=== PATIENT | female | born 1945 | race Caucasian/White ===

== ENCOUNTER 2017-09-09 21:02 | Inpatient (IN) | payer MEDICARE, BC ==
[~2017-09-09] VITALS: Ht 162.6 cm; Wt 93.0 kg
[2017-09-09 21:13] VITALS: BP 120/62; PULSE 73; RESP 18; TEMP 97.8; O2SAT 99
[2017-09-09] MEDS ORDERED: MORPHINE SULFATE 4 MG/ML INJ IM ONE (21:15)
--- NOTE | 2017-09-09 21:18 | PD ---
HPI Chief Complaint: fall Time Seen by Provider: 21:06 Travel History International Travel<30 days: No Contact w/Intl Traveler<30days: No History of Present Illness HPI 72-year-old female presents status post trip and fall on something on the floor she thinks wiring at a conference here in town. She states she felt something in her right shoulder and that is the main location of her pain. She states she also has little bit of pain to her right knee but she's not sure if that's her typical pain. She states she did not hit her head or black out. She denies other concurrent complaints. Quality pain is sharp. Severity is severe per patient. Pain is worse with movement. She denies other modifying factors. She denies taking blood thinner medications. PFSH Past Medical History Narrative Medical Diabetes, hypertension Past Surgical History Cholecystectomy: Yes Hysterectomy: Yes Social History Alcohol Use: No Tobacco Use: No Substance Use: No Allergies-Medications (Allergen,Severity, Reaction): Coded Allergies: No Known Allergies (Unverified , 09/09/17) Reported Meds & Prescriptions Reported Meds & Active Scripts Active Zofran Odt (Ondansetron Odt) 4 Mg Tab 4 Mg SL Q8HR PRN Percocet (Oxycodone-Acetaminophen) 5-325 mg Tab 1 Tab PO Q6H PRN Review of Systems Except as stated in HPI: all other systems reviewed are Neg Physical Exam Narrative General: 72 y/o patient in no apparent distress Skin: Warm and dry Eyes: Pupils equal NECK: no pain with palpation in midline and with range of motion Cardiovascular: Regular rate and rhythm Respiratory: Normal respiratory effort noted, clear to auscultation bilaterally Abdomen: soft, nontender, nondistended Back: No step-offs, entire midline spine nontender with palpation Extremities: Pain with palpation of right shoulder and right knee, no lacerations over, neurovascularly intact, no pain with palpation other joints Neuro: awake, alert, sensation and motor grossly intact Data Data Last Documented VS Vital Signs Date Time Temp Pulse Resp B/P (MAP) Pulse Ox O2 Delivery O2 Flow Rate FiO2 09/10/17 02:59 76 18 133/62 (85) 97 Room Air 09/09/17 21:13 97.8 Orders Orders Hip, Uni(Ap&Lat) W Ap Pelvis (09/09/17 21:13) Knee, Complete (4vws) (09/09/17 21:13) Morphine Inj (Morphine Inj) (09/09/17 21:15) Shoulder, Limited(2vws) (09/09/17 21:13) Splint Or Brace Apply/Monitor (09/09/17 22:13) Sling Cradle Arm (09/09/17 ) Oxycodone-Acetamin 5-325 Mg (Percocet (09/09/17 23:45) Ondansetron Odt (Zofran Odt) (09/09/17 23:45) Complete Blood Count With Diff (09/10/17 03:16) Basic Metabolic Panel (Bmp) (09/10/17 03:16) Iv Access Insert/Monitor (09/10/17 03:16) Ecg Monitoring (09/10/17 03:16) Oximetry (09/10/17 03:16) Place In Observation (09/10/17 ) Vital Signs (Adult) Q4H (09/10/17 03:30) Activity Oob With Assistance (09/10/17 03:30) Diet 1800 Ada Cons Carb (09/10/17 Breakfast) Sodium Chloride 0.9% Flush (Ns Flush) (09/10/17 03:30) Sodium Chloride 0.9% Flush (Ns Flush) (09/10/17 09:00) Ondansetron Inj (Zofran Inj) (09/10/17 03:30) Comprehensive Metabolic Panel (09/11/17 06:00) Complete Blood Count With Diff (09/11/17 06:00) Pt Request For Service (09/10/17 03:30) Case Management Consult (09/10/17 03:30) Scd Bilateral/Knee High MARY.BID (09/10/17 03:30) Rj Bilateral/Knee High MARY.QSHIFT (09/10/17 03:34) Acetaminophen (Tylenol) (09/10/17 03:30) Acetamin-Hydrocod 325-5 Mg ([place] 5-325 (09/10/17 03:30) Morphine Inj (Morphine Inj) (09/10/17 03:30) Docusate Sodium-Senna (Vicky-Colace) (09/10/17 09:00) Magnesium Hydroxide Liq (Milk Of Magnesi (09/10/17 03:30) Sennosides (Senokot) (09/10/17 03:30) Bisacodyl Supp (Dulcolax Supp) (09/10/17 03:30) Lactulose Liq (Lactulose Liq) (09/10/17 03:30) Bedside Glucose MARY.CSUGAR (09/10/17 03:30) Blood Glucose Goal (Criteria) (09/10/17 03:30) Hypoglycemia 70 Mg/Dl Or < (09/10/17 03:30) Notify Dr: Other (09/10/17 03:30) Dextrose 50% In Nasrin (Vial) Inj (D50w (Vi (09/10/17 03:30) Glucagon Inj (Glucagon Inj) (09/10/17 03:30) Insulin Aspart Supplemtl Scale (Novolog (09/10/17 08:00) Admit Order (Ed Use Only) (09/10/17 03:36) MDM Medical Decision Making Medical Screen Exam Complete: Yes Emergency Medical Condition: Yes Medical Record Reviewed: Yes (past history confirmed) Interpretation(s) Last 24 hours Impressions Shoulder X-Ray 09/09/172112 Signed Impressions: Service Date/Time: Saturday, September 09, 2017 21:32 - CONCLUSION: Proximal humeral fracture. Simón Ortega MD Knee X-Ray 09/09/172112 Signed Impressions: Service Date/Time: Saturday, September 09, 2017 21:43 - CONCLUSION: No acute disease. Simón Ortega MD Hip and Pelvis X-Ray 09/09/172112 Signed Impressions: Service Date/Time: Saturday, September 09, 2017 21:40 - CONCLUSION: No acute disease. Simón Ortega MD Differential Diagnosis Fracture, strain, sprain Narrative Course Will check x-rays and dose with morphine and reevaluate X-ray show proximal humerus fracture on the right. Sling will be placed. Advised close orthopedic follow-up on Tuesday in [place] where they live. At discharge tried to get patient up to ambulate and she states she's having too much pain in her right knee and daughter does not feel comfortable taking her home. Even with 3 people in the room trying to help her ambulate patient did not fill comfortable walking given pain in her knee, We'll admit to medicine for pain control and further care. Physician Communication Physician Communication dr farmer agrees to observation Diagnosis Primary Impression: Right humeral fracture Qualified Codes: S42.201A - Unspecified fracture of upper end of right humerus , initial encounter for closed fracture Additional Impression: Right knee pain Qualified Codes: M25.561 - Pain in right knee Admitting Information Admitting Physician Requests: Observation Scripts Ondansetron Odt (Zofran Odt) 4 Mg Tab 4 MG SL Q8HR Y for Nausea/Vomiting, #10 TAB 0 Refills Prov: Hayley Mtz MD 09/09/17 Oxycodone-Acetaminophen (Percocet) 5-325 mg Tab 1 TAB PO Q6H Y for PAIN, #15 TAB 0 Refills Prov: Hayley Mtz MD 09/09/17 Hayley Mtz MD Sep 09, 2017 21:18
--- NOTE | 2017-09-09 22:14 | RADRPT ---
EXAM DATE/TIME: 09/09/2017 21:32 [facility] COMPARISON: No previous studies available for comparison. INDICATIONS : Fell tonight. MEDICAL HISTORY : None. SURGICAL HISTORY : None. ENCOUNTER: Initial ACUITY: 1 day PAIN SCORE: 10/10 LOCATION: Right shoulder FINDINGS: There is fracture of the proximal humerus at the surgical neck. The humeral shaft is displaced anteri priscilla. The glenohumeral joint is aligned. CONCLUSION: Proximal humeral fracture. Simón Ortega MD on September 09, 2017 at 22:10 Board Certified Radiologist. This report was verified electronically.
--- NOTE | 2017-09-09 22:15 | RADRPT ---
EXAM DATE/TIME: 09/09/2017 21:40 [facility] COMPARISON: No previous studies available for comparison. INDICATIONS : Fell tonight. MEDICAL HISTORY : None. SURGICAL HISTORY : None. ENCOUNTER: Initial ACUITY: 1 day PAIN SCORE: 0/10 LOCATION: Right hip FINDINGS: Examination of the right hip was performed with AP Pelvis. The primary and secondary trabecular robbin pa of the femoral neck is intact. The hip joint is of normal width without significant sclerosis or bony hypertrophy. The acetabulum is grossly intact. There is degenerative change in the lumbar spin e. CONCLUSION: No acute disease. Simón Ortega MD on September 09, 2017 at 22:13 Board Certified Radiologist. This report was verified electronically.
--- NOTE | 2017-09-09 22:15 | RADRPT ---
EXAM DATE/TIME: 09/09/2017 21:43 [facility] COMPARISON: No previous studies available for comparison. INDICATIONS : Fell tonight. MEDICAL HISTORY : None. SURGICAL HISTORY : None. ENCOUNTER: Initial ACUITY: 1 day PAIN SCORE: 0/10 LOCATION: Right KNEE FINDINGS: Four view examination of the right knee demonstrates no evidence of fracture or dislocation. Bony mi neralization is normal. The articular surfaces are intact. The suprapatellar soft tissues have a no rmal configuration. CONCLUSION: No acute disease. Simón Ortega MD on September 09, 2017 at 22:13 Board Certified Radiologist. This report was verified electronically.
[2017-09-09] MEDS ORDERED: PERC5TAB12 PO (23:30)
[2017-09-09] MEDS ORDERED: ZOFR4TAB3 SL (23:43)
[2017-09-09] MEDS ORDERED: oxyCODONE/ACETAMINOPHEN 5 MG/325 MG TAB PO ONE (23:45)
[2017-09-09] MEDS ORDERED: ONDANSETRON ODT 4 MG TAB PO ONE (23:45)
[2017-09-10] VITALS (8 sets, daily range): BP systolic 94–166; BP diastolic 55–73; PULSE 72–89; RESP 16–22; TEMP 98.3–99.9; O2SAT 91–98
[2017-09-10] MEDS ORDERED: BISACODYL 10 MG SUPP RECTAL PRN (03:30)
[2017-09-10] MEDS ORDERED: GLUCAGON 1 MG/ML VIAL OTHER PRN (03:30)
[2017-09-10] MEDS ORDERED: ACETAMINOPHEN 325 MG TAB PO PRN (03:30)
[2017-09-10] MEDS ORDERED: SODIUM CHLORIDE 0.9% FLUSH 10 ML FLUSH IV FLUSH PRN (03:30)
[2017-09-10] MEDS ORDERED: ACETAMINOPHEN/HYDROcodone 325 MG/5 MG TAB PO PRN (03:30)
[2017-09-10] MEDS ORDERED: MAGNESIUM HYDROXIDE SUSP 30 ML CUP PO PRN (03:30)
[2017-09-10] MEDS ORDERED: DEXTROSE 50% IN WATER 50 ML VIAL(D50) IV PUSH PRN (03:30)
[2017-09-10] MEDS ORDERED: SENNOSIDES 8.6 MG TAB PO PRN (03:30)
[2017-09-10] MEDS ORDERED: LACTULOSE SYRUP 20 GM/30 ML CUP PO PRN (03:30)
[2017-09-10 04:04] LABS: AUTOMATED NEUTROPHIL # 12.4 TH/MM3 (1.8-7.7); BASOPHIL # 0.1 TH/MM3 (0-0.2); BASOPHIL % 0.5 % (0.0-2.0); EOSINOPHIL % 0.1 % (0.0-4.0); HEMATOCRIT 38.9 % (35.0-46.0); HEMO FLAGS DIFF FINAL; LYMPHOCYTE # 1.1 TH/MM3 (1.0-4.8); MEAN CELL VOLUME 88.3 FL (80.0-100.0); MEAN CORPUSCULAR HEMOGLOBIN 28.8 PG (27.0-34.0); MEAN CORPUSCULAR HGB CONC 32.7 % (32.0-36.0); MONO % 4.9 % (0.0-8.0); NEUT % 86.5 % (16.0-70.0); PLATELET COUNT 215 TH/MM3 (150-450); RED CELL DISTRIBUTION WIDTH 13.7 % (11.6-17.2); WHITE BLOOD COUNT 14.3 TH/MM3 (4.0-11.0)
--- NOTE | 2017-09-10 04:29 | HHI.HP ---
HPI Service [facility] Primary Care Physician Unknown Admission Diagnosis right proximal humerus fracture, right knee pain Diagnoses: (1) Fall Diagnosis: Principal (2) Proximal humerus fracture Diagnosis: Principal (3) Knee pain, right Diagnosis: Principal (4) HTN (hypertension) Diagnosis: Principal (5) DM (diabetes mellitus) Diagnosis: Principal Travel History International Travel<30 Days: No Contact w/Intl Traveler <30 Da: No Traveled to Known Affected Are: No History of Present Illness This is a 72-year-old female with a PMH of HTN and DM who is brought to the ER by Daughter secondary to complaints of right shoulder and right knee pain after a fall. Both patient and daughter are visiting from [facility] she had mechanical trip and fall while at Hotel. Denies dizziness/ lightheadedness, LOC or head trauma. On arrival, BP 120/62, HR 73, O2 sat 99% on RA, Afebrile. WBC 14.3. Chemistry pending. Hip X-ray negative. Knee X- ray with no acute findings. Shoulder X-ray with proximal humerus fracture, s/p sling in ER. Pt was to be d/c'd home w/ outpatient Ortho follow-up, however c/ o severe, persistent shoulder/knee pain. Pt attempted to ambulate while in ER, however had severe pain unable to ambulate. Daughter not comfortable taking patient home in this condition. Review of Systems Except as stated in HPI: all other systems reviewed are Neg ROS: 14 point review of systems otherwise negative. Past Family Social History Past Medical History PMH: HTN and DM Past Surgical History PAST SURGICAL HISTORY: Cholecystectomy, Hysterectomy Allergies: Coded Allergies: No Known Allergies (Unverified , 09/09/17) Family History PAST FAMILY HISTORY: Reviewed. No h/o DM or CAD Social History PAST SOCIAL HISTORY: Negative for alcohol, tobacco or drugs. Physical Exam Vital Signs Vital Signs Date Time Temp Pulse Resp B/P (MAP) Pulse Ox O2 Delivery O2 Flow Rate FiO2 09/10/17 03:52 20 09/10/17 03:51 20 09/10/17 02:59 76 18 133/62 (85) 97 Room Air 10/14/17 02:40 72 18 94/55 (68) 98 Room Air 09/09/17 21:18 74 98 09/09/17 21:13 97.8 73 18 120/62 (81) 99 Physical Exam PE: GENERAL: Elderly white female in no acute distress. Daughter at bedside. HEENT: PERRLA, EOMI. No scleral icterus or conjunctival pallor. No lid lag or facial droop. CARDIOVASCULAR: Regular rate and rhythm. No obvious murmurs to auscultation. No chest tenderness to palpation. RESPIRATORY: No obvious rhonchi or wheezing. Clear to auscultation. Breath sounds equal bilaterally. GASTROINTESTINAL: Abdomen soft, non-tender, nondistended. BS normal. MUSCULOSKELETAL: Extremities without clubbing, cyanosis, or edema. No obvious deformities. RUE in sling. Decreased ROM of right knee due to pain, no obvious deformity. NEUROLOGICAL: Awake, alert and oriented x4. No focal neurologic deficits. Moving both upper and lower extremities spontaneously. Laboratory Laboratory Tests Test 09/10/17 03:45 White Blood Count 14.3 Red Blood Count 4.40 Hemoglobin 12.7 Hematocrit 38.9 Mean Corpuscular Volume 88.3 Mean Corpuscular Hemoglobin 28.8 Mean Corpuscular Hemoglobin Concent 32.7 Red Cell Distribution Width 13.7 Platelet Count 215 Mean Platelet Volume 10.4 Neutrophils (%) (Auto) 86.5 Lymphocytes (%) (Auto) 8.0 Monocytes (%) (Auto) 4.9 Eosinophils (%) (Auto) 0.1 Basophils (%) (Auto) 0.5 Neutrophils # (Auto) 12.4 Lymphocytes # (Auto) 1.1 Monocytes # (Auto) 0.7 Eosinophils # (Auto) 0.0 Basophils # (Auto) 0.1 CBC Comment DIFF FINAL Differential Comment Result Diagram: 09/10/17 0345 Caprini VTE Risk Assessment Caprini VTE Risk Assessment: Mod/High Risk (score >= 2) Caprini Risk Assessment Model Point Value = 1 Point Value = 2 Point Value = 3 Point Value = 5 Age 41-60 Minor surgery BMI > 25 kg/m2 Swollen legs Varicose veins or History of unexplained or recurrent spontaneous Oral contraceptives or hormone replacement Sepsis (< 1 month) Serious lung disease, including pneumonia (< 1 month) Abnormal pulmonary function Acute myocardial infarction Congestive heart failure (< 1 month) History of inflammatory bowel disease Medical patient at bed rest Age 61-74 Arthroscopic surgery Major open surgery (> 45 min) Laparoscopic surgery (> 45 min) Malignancy Confined to bed (> 72 hours) Immobilizing plaster cast Central venous access Age >= 75 History of VTE Family history of VTE Factor V Leiden Prothrombin [id number] Lupus anticoagulant Anticardiolipin antibodies Elevated serum homocysteine Heparin-induced thrombocytopenia Other congenital or acquired thrombophilia Stroke (< 1 month) Elective arthroplasty Hip, pelvis, or leg fracture Acute spinal cord injury (< 1 month) Prophylaxis Regimen Total Risk Factor Score Risk Level Prophylaxis Regimen 0-1 Low Early ambulation 2 Moderate Order ONE of the following: *Sequential Compression Device (SCD) *Heparin 5000 units SQ BID 3-4 Higher Order ONE of the following medications: *Heparin 5000 units SQ TID *Enoxaparin/Lovenox 40 mg SQ daily (WT < 150 kg, CrCl > 30 mL/min) *Enoxaparin/Lovenox 30 mg SQ daily (WT < 150 kg, CrCl > 10-29 mL/min) *Enoxaparin/Lovenox 30 mg SQ BID (WT < 150 kg, CrCl > 30 mL/min) AND/OR *Sequential Compression Device (SCD) 5 or more Highest Order ONE of the following medications: *Heparin 5000 units SQ TID (Preferred with Epidurals) *Enoxaparin/Lovenox 40 mg SQ daily (WT < 150 kg, CrCl > 30 mL/min) *Enoxaparin/Lovenox 30 mg SQ daily (WT < 150 kg, CrCl > 10-29 mL/min) *Enoxaparin/Lovenox 30 mg SQ BID (WT < 150 kg, CrCl > 30 mL/min) AND *Sequential Compression Device (SCD) Assessment and Plan Problem List: (1) Fall ICD Code: W19.XXXA - Unspecified fall, initial encounter (2) Proximal humerus fracture ICD Code: S42.209A - Unspecified fracture of upper end of unspecified humerus, initial encounter for closed fracture (3) Knee pain, right ICD Code: M25.561 - Pain in right knee (4) HTN (hypertension) ICD Code: I10 - Essential (primary) hypertension (5) DM (diabetes mellitus) ICD Code: E11.9 - Type 2 diabetes mellitus without complications Assessment and Plan A/P: 1. Fall: s/p mechanical trip and fall, no dizziness, no LOC or head trauma reported. Hip X-ray w/ no acute findings, images reviewed by me. 2. Prox Humerus Fx: Right. Shoulder X-ray w/ right proximal humerus fracture , images reviewed by me. Secondary to fall, likely non-operable, s/p sling in ER. Pain control. Ortho consult for further eval. 3. Knee Pain: Right. Secondary to fall, Knee X-ray w/ no acute findings, images reviewed by me. Pt unable to bare weight. PT for eval/tx, Ortho eval for further recommendations. 4. HTN: H/o HTN, episode of transient hypotension w/ BP 94/55, HR 72 while standing, BP now normalized 133/62, HR 76, likely vasovagal event. IVF for hydration, monitor BP. 5. DM: Sliding scale w/ Accu-Cheks. 6. DVT Prophylaxis: Heparin sq 7. Social work for d/c planning as needed. 8. Case discussed w/ ER physician at length Julee Hyde MD Sep 10, 2017 04:29
[2017-09-10 04:43] LABS: BICARBONATE 27.4 MEQ/L (21.0-32.0); POTASSIUM 3.7 MEQ/L (3.5-5.1)
[2017-09-10] MEDS: MORPHINE SULFATE 4 MG/ML INJ IV PUSH PRN ×4 (04:50→20:33)
[2017-09-10] MEDS: INSULIN ASPART SUPPLEMENTAL SCALE SQ SCH ×4 (08:00→20:27)
[2017-09-10] MEDS: DOCUSATE SODIUM 50 MG/SENNA 8.6 MG TAB PO SCH ×2 (08:09→20:27)
[2017-09-10] MEDS: SODIUM CHLORIDE 0.9% FLUSH 10 ML FLUSH IV FLUSH SCH ×2 (08:10→20:27)
[2017-09-10] MEDS: HEPARIN SODIUM - SQ 10,000 UNITS/ML VIAL SQ SCH ×2 (08:10→20:27)
[2017-09-10] MEDS: oxyCODONE/ACETAMINOPHEN 5 MG/325 MG TAB PO PRN ×3 (08:11→21:12)
[2017-09-10] MEDS: ONDANSETRON HCL 4 MG/2 ML VIAL IVP PRN ×2 (08:22→21:18)
[2017-09-10] MEDS ORDERED: ACTO30TA10 PO (12:29)
[2017-09-10] MEDS ORDERED: OMEP20TA PO (12:30)
[2017-09-10] MEDS ORDERED: HYDR25TA5 PO (12:31)
[2017-09-10] MEDS ORDERED: AMLO5TAB2 PO (12:31)
[2017-09-10] MEDS ORDERED: ROSU5 PO (12:32)
[2017-09-10] MEDS ORDERED: LISI-515 PO (12:32)
--- NOTE | 2017-09-10 12:55 | HHI.PR ---
Subjective Remarks Follow-up for fall and shoulder and knee pain. The patient is seen with her daughter at bedside. The patient had a trip and fall landing on her right side yesterday. Since then she's been having pretty significant pain in her right shoulder and right knee. The patient states that as long she doesn't try to move she does not have any pain. She complains of severe pain 9/10 in severity whenever she tries to bear weight. She was able to do some activities in bed with therapy today with relatively little discomfort. She denies any other injury. Due to the level of pain and the patient's knee, the patient and daughter are concerned that further workup may be needed for this despite reassurance. The patient does report that the Percocet and morphine she is getting is helping to alleviate the discomfort. The patient does state that she 's been having some chest discomfort and shortness of breath whenever she tries to exert herself since this injury yesterday. She denies any prior history of heart disease, but does take medicine for diabetes and high blood pressure. Patient states that when she tried to ambulate last night she felt like she was going to pass out, and thinks this was due to pain. Objective Vitals Vital Signs Date Time Temp Pulse Resp B/P (MAP) Pulse Ox O2 Delivery O2 Flow Rate FiO2 09/10/17 12:11 98.5 84 20 166/73 (104) 94 09/10/17 08:23 98.6 83 16 124/60 (81) 92 09/10/17 05:36 98.3 89 19 121/57 (78) 93 09/10/17 05:02 09/10/17 03:52 20 09/10/17 03:51 20 09/10/17 02:59 76 18 133/62 (85) 97 Room Air 09/10/17 02:40 72 18 94/55 (68) 98 Room Air 09/09/17 21:18 74 98 09/09/17 21:13 97.8 73 18 120/62 (81) 99 Result Diagram: 09/10/17 0345 09/10/17 0345 Imaging Last Impressions Shoulder X-Ray 09/09/172112 Signed Impressions: Service Date/Time: Saturday, September 09, 2017 21:32 - CONCLUSION: Proximal humeral fracture. Simón Ortega MD Knee X-Ray 09/09/172112 Signed Impressions: Service Date/Time: Saturday, September 09, 2017 21:43 - CONCLUSION: No acute disease. Simón Ortega MD Hip and Pelvis X-Ray 09/09/172112 Signed Impressions: Service Date/Time: Saturday, September 09, 2017 21:40 - CONCLUSION: No acute disease. Simón Ortega MD Objective Remarks GENERAL: Well-developed well-nourished obese. In no acute distress. SKIN: Warm and dry. No lesions noted. HEENT: Normocephalic. Pupils equal and round. Mucous membranes pink and moist. CARDIOVASCULAR: Regular rate and rhythm. No murmur appreciated. RESPIRATORY: No accessory muscle use. Clear to auscultation. Breath sounds equal bilaterally. GASTROINTESTINAL: Abdomen soft, non-tender, nondistended. Bowel sounds x4. MUSCULOSKELETAL: Right shoulder in a sling. Right knee with some swelling and maybe small joint effusion, no bruising or ecchymosis, some discomfort and decreased ROM. No edema. NEUROLOGICAL: Awake and alert. Motor and sensory grossly intact in the right upper and right lower extremities. Normal speech. PSYCHIATRIC: Appropriate mood and affect; insight and judgment normal. A/P Problem List: (1) Fall ICD Code: W19.XXXA - Unspecified fall, initial encounter Status: Acute (2) Proximal humerus fracture ICD Code: S42.209A - Unspecified fracture of upper end of unspecified humerus, initial encounter for closed fracture Status: Acute (3) Knee pain, right ICD Code: M25.561 - Pain in right knee Status: Acute (4) HTN (hypertension) ICD Code: I10 - Essential (primary) hypertension Status: Chronic (5) DM (diabetes mellitus) ICD Code: E11.9 - Type 2 diabetes mellitus without complications Status: Chronic Assessment and Plan 72-year-old female with a PMH of HTN and DM who presented after a fall with right shoulder and right knee pain Right proximal humerus fracture s/p fall: Shoulder X-ray personally reviewed with w/ displaced right proximal humerus fracture. Orthopedics consulted, appreciate input. Continue sling. Continue pain control. Acute right knee pain s/p fall: Knee, hip, pelvis X-rays w/ no acute findings. Pt unable to bear weight or ambulate. PT/OT. Orthopedic consulted as above. Continue pain control with Percocet and IV morphine as needed. HTN: Chronic with transient hypotension w/ BP 94/55, HR 72 while standing in the ED. BP stable while laying, will continue monitor orthostatic vitals when ambulatory. IVF for hydration, monitor BP. Reconcile home medications. DM: Reconcile home medications, discussed with RN. Sliding scale w/ Accu- Cheks. Chest pain and shortness of breath: Intermittent and worse with activity, however none currently. Check serial EKGs and troponins and treat accordingly. TRUDY: Continue home CPAP. DVT Prophylaxis: Heparin sq Discharge Planning Follow-up orthopedics recommendations. Problem Qualifiers (1) Fall: Qualified Codes: W19.XXXA - Unspecified fall, initial encounter (2) Proximal humerus fracture: Qualified Codes: S42.291A - Other displaced fracture of upper end of right humerus, initial encounter for closed fracture (3) Knee pain, right: Qualified Codes: M25.561 - Pain in right knee (4) HTN (hypertension): Qualified Codes: I10 - Essential (primary) hypertension Alexys Palmer Sep 10, 2017 12:55
[2017-09-10 14:02] LABS: CREATINE KINASE 85 U/L (26-192)
--- NOTE | 2017-09-10 14:32 | EKG ---
Date Performed: 09/10/2017 Time Performed: 12:24:24 PTAGE: 72 years EKG: Sinus rhythm INCOMPLETE RIGHT BUNDLE BRANCH BLOCK BORDERLINE ECG NO PREVIOUS TRACING DOCTOR: Ashutosh Pfeiffer Interpretating Date/Time 09/10/2017 14:31:59
--- NOTE | 2017-09-10 16:10 | PD.CONS ---
cc: Chon Gutierrez Jr., MD HPI Service Orthopedic Surgeons Consult Requested By Primary Care Physician Unknown Admission Diagnosis right proximal humerus fracture, right knee pain Diagnoses: (1) Fall (2) Proximal humerus fracture (3) Knee pain, right (4) HTN (hypertension) (5) DM (diabetes mellitus) Chief Complaint: right shoulder pain right knee pain History of Present Illness 72-year-old female presents status post trip and fall c/o right shoulder and right knee pain. She has a PMH of HTN and DM who is brought to the ER by Daughter. Both are visiting from [facility] she had mechanical trip and fall while at Hotel. Denies dizziness/lightheadedness, LOC or head trauma. Pt was to be d/c'd home w/ outpatient Ortho follow-up, however c/o severe, persistent shoulder/knee pain. Pt attempted to ambulate while in ER, however had severe pain unable to ambulate. Daughter not comfortable taking patient home in this condition. During This consultation, she complains of RIGHT shoulder pain, exacerbated by range of motion, relieved at rest and use of the sling, and not associated with paresthesia or numbness to the RIGHT upper extremity, pain is nonradiating is 5 / 10. Her RIGHT knee pain is 6/10, exacerbated by range of motion beyond 45, not associated with paresthesia and numbness to the RIGHT lower extremity. The pain in either extremity is non-radiating ROS - General Review of Systems Except as stated in HPI: all other systems reviewed are Neg ROS: 14 point review of systems otherwise negative. PFSH Past Family Social History Past Medical History PMH: HTN and DM Past Surgical History PAST SURGICAL HISTORY: Cholecystectomy, Hysterectomy Allergies: Coded Allergies: No Known Allergies (Unverified , 09/09/17) Family History PAST FAMILY HISTORY: Reviewed. No h/o DM or CAD Social History PAST SOCIAL HISTORY: Negative for alcohol, tobacco or drugs. Allergies-Medications Allergies-Medications (Allergen,Severity, Reaction): Coded Allergies: No Known Allergies (Unverified , 09/09/17) Reported Meds & Prescriptions Reported Meds & Active Scripts Active Zofran Odt (Ondansetron Odt) 4 Mg Tab 4 Mg SL Q8HR PRN Percocet (Oxycodone-Acetaminophen) 5-325 mg Tab 1 Tab PO Q6H PRN Past Family Social History Past Medical History PMH: HTN and DM Past Surgical History PAST SURGICAL HISTORY: Cholecystectomy, Hysterectomy Allergies: Coded Allergies: No Known Allergies (Unverified , 09/09/17) Active Ordered Medications Current Medications Medications (Trade) Dose Ordered Sig/Juanita Route Start Time Stop Time Status Last Admin (NS Flush) 2 ml UNSCH PRN IV FLUSH 09/10/17 03:30 (NS Flush) 2 ml BID IV FLUSH 09/10/17 09:00 09/10/17 08:10 (Zofran Inj) 4 mg Q6H PRN IVP 09/10/17 03:30 09/10/17 08:22 (Tylenol) 650 mg Q6H PRN PO 09/10/17 03:30 (Morphine Inj) 2 mg Q3H PRN IV PUSH 09/10/17 03:30 09/10/17 10:49 (Vicky-Colace) 1 tab BID PO 09/10/17 09:00 09/10/17 08:09 (Milk Of Magnesia Liq) 30 ml Q12H PRN PO 09/10/17 03:30 (Senokot) 17.2 mg Q12H PRN PO 09/10/17 03:30 (Dulcolax Supp) 10 mg DAILY PRN RECTAL 09/10/17 03:30 (Lactulose Liq) 30 ml DAILY PRN PO 09/10/17 03:30 (D50w (Vial) Inj) 50 ml UNSCH PRN IV PUSH 09/10/17 03:30 (Glucagon Inj) 1 mg UNSCH PRN OTHER 09/10/17 03:30 (NovoLOG SUPPLEMENTAL SCALE) 1 ACHS SLIDING SCALE SQ 09/10/17 08:00 (Heparin Inj) 5,000 units Q12HR SQ 09/10/17 09:00 09/10/17 08:10 (Percocet 5-325 Mg) 1 tab Q4H PRN PO 09/10/17 07:30 09/10/17 12:56 Reported Meds & Active Scripts Active Zofran Odt (Ondansetron Odt) 4 Mg Tab 4 Mg SL Q8HR PRN Percocet (Oxycodone-Acetaminophen) 5-325 mg Tab 1 Tab PO Q6H PRN Reported Crestor (Rosuvastatin Calcium) 5 Mg Tab 5 Mg PO DAILY Lisinopril 20 Mg Tab 20 Mg PO DAILY Hydrochlorothiazide 25 Mg Tab 25 Mg PO DAILY Amlodipine (Amlodipine Besylate) 5 Mg Tab 5 Mg PO DAILY Omeprazole 20 Mg Tab 20 Mg PO BID Actos (Pioglitazone HCl) 30 Mg Tab 30 Mg PO DAILY Family History PAST FAMILY HISTORY: Reviewed. No h/o DM or CAD Social History PAST SOCIAL HISTORY: Negative for alcohol, tobacco or drugs. Physical Exam Vital Signs Vital Signs Date Time Temp Pulse Resp B/P (MAP) Pulse Ox O2 Delivery O2 Flow Rate FiO2 09/10/17 15:58 98.5 79 22 141/63 (89) 92 09/10/17 12:11 98.5 84 20 166/73 (104) 94 09/10/17 08:23 98.6 83 16 124/60 (81) 92 09/10/17 05:36 98.3 89 19 121/57 (78) 93 09/10/17 05:02 09/10/17 03:52 20 09/10/17 03:51 20 09/10/17 02:59 76 18 133/62 (85) 97 Room Air 09/10/17 02:40 72 18 94/55 (68) 98 Room Air 09/09/17 21:18 74 98 09/09/17 21:13 97.8 73 18 120/62 (81) 99 Physical Exam Alert awake and oriented -3. No acute distress. Neck: no tenderness to palpation along the posterior cervical region. No pain with any range of motion and neck. Abdomen: Soft, nontender, nondistended. Pulmonary: Normal respiratory effort. Right Upper extremity exam: sling in place, TTP, Swelling and ecchymosis about the shoulder. Axillary nerve sensation intact. Neurovascularly intact. Left upper extremity: No deformities. Motor exam is intact in the anterior interosseous, posterior interosseous, and ulnar nerves. Otherwise she is neurovascularly intact distally with good palpable pulses and capillary refill. RIGHT lower extremity: No deformities. small trace effusion, ROM 0-40, stable to varus/valgus stress. TTP lateral joint line.+ PT/DP pulses. Supple compartments. Negative Homans sign. Laboratory Laboratory Tests Test 09/10/17 03:45 09/10/17 13:17 White Blood Count 14.3 Red Blood Count 4.40 Hemoglobin 12.7 Hematocrit 38.9 Mean Corpuscular Volume 88.3 Mean Corpuscular Hemoglobin 28.8 Mean Corpuscular Hemoglobin Concent 32.7 Red Cell Distribution Width 13.7 Platelet Count 215 Mean Platelet Volume 10.4 Neutrophils (%) (Auto) 86.5 Lymphocytes (%) (Auto) 8.0 Monocytes (%) (Auto) 4.9 Eosinophils (%) (Auto) 0.1 Basophils (%) (Auto) 0.5 Neutrophils # (Auto) 12.4 Lymphocytes # (Auto) 1.1 Monocytes # (Auto) 0.7 Eosinophils # (Auto) 0.0 Basophils # (Auto) 0.1 CBC Comment DIFF FINAL Differential Comment Blood Urea Nitrogen 17 Creatinine 0.93 Random Glucose 138 Calcium Level 8.8 Sodium Level 139 Potassium Level 3.7 Chloride Level 103 Carbon Dioxide Level 27.4 Anion Gap 9 Estimat Glomerular Filtration Rate 59 Total Creatine Kinase 85 Troponin I LESS THAN 0.02 Result Diagram: 09/10/1734409/10/17344 Imaging Last 72 hours Impressions Shoulder X-Ray 09/09/172112 Signed Impressions: Service Date/Time: Saturday, September 09, 2017 21:32 - CONCLUSION: Proximal humeral fracture. Simón Ortega MD Knee X-Ray 09/09/172112 Signed Impressions: Service Date/Time: Saturday, September 09, 2017 21:43 - CONCLUSION: No acute disease. Simón Ortega MD Hip and Pelvis X-Ray 09/09/172112 Signed Impressions: Service Date/Time: Saturday, September 09, 2017 21:40 - CONCLUSION: No acute disease. Simón Ortega MD Assessment & Plan Assessment and Plan 1-right prox humerus fx 2-right knee pain. 72yo female from [facility] sustaining a fall at a hotel complaining of RIGHT shoulder pain and RIGHT knee pain. She is grossly neurovascularly intact. She has a past medical history of diabetes and hypertension. X-ray obtained in the emergency department revealed a RIGHT proximal humerus for fracture with fracture of the surgical neck and greater tuberosity. I would like to obtain a CAT scan of the RIGHT shoulder to further determine the extent of the injury to the articular surface. As far as her RIGHT knee, x-ray is negative for fractures. However on exam she is tender at the lateral joint line and has difficulty with with range of motion beyond 30-45. This likely represents a nondisplaced fracture versus exacerbation of underlying osteoarthritis. I will obtain an MRI of the RIGHT knee. Nonweightbearing RIGHT upper and RIGHT lower extremity. Nothing by mouth at midnight I will review results of the imaging studies and make recommendations tomorrow morning. All questions aswered. Mother and daughter at bedside. Chon Gutierrez Jr., MD Sep 10, 2017 16:10
--- NOTE | 2017-09-10 17:49 | RADRPT ---
EXAM DATE/TIME: 09/10/2017 16:57 [facility] COMPARISON: KNEE RIGHT COMPLETE (4VWS), September 09, 2017, 21:43. INDICATIONS : Internal derangement. MEDICAL HISTORY : Hypertension. Diabetes mellitus type 2. SURGICAL HISTORY : Hysterectomy. Cholecystectomy. Umbilical hernia repair. ORIF right elbow. ENCOUNTER: Initial ACUITY: 1 day PAIN SCORE: 0/10 LOCATION: Right Knee. TECHNIQUE: Multiplanar, multisequence MRI examination was performed without contrast. FINDINGS: CRUCIATE LIGAMENTS: ACL and PCL are intact. Increased signal intensity is identified at the tibial attachment of the ACL. MENISCI: Abnormal signal intensity extending to the inferior surface is identified in the posterior horn of th e medial meniscus. The lateral meniscus appears intact. COLLATERAL LIGAMENTS: MCL and LCL complexes are intact. BONE/CARTILAGE: Dear T2 hyperintensity with mild edema is identified transversely across the lateral tibial plateau. There is a component extending longitudinally into the metaphysis of the proximal tibia. There is no significant distraction. There is no depression of the articulating surfaces. MISCELLANEOUS: Small to moderate-sized joint effusion is noted. CONCLUSION: 1. Nondisplaced fracture of the lateral tibial plateau without depression. 2. Tear in the posterior horn of the medial meniscus. 3. Small to moderate effusion. 4. Mild ACL strain at its tibial attachment. Lester Lange MD on September 10, 2017 at 17:43 Board Certified Radiologist. This report was verified electronically.
--- NOTE | 2017-09-10 18:26 | RADRPT ---
EXAM DATE/TIME: 09/10/2017 17:24 [facility] COMPARISON: No previous studies available for comparison. INDICATIONS : Shoulder trauma RADIATION DOSE: 23.98 CTDIvol (mGy) MEDICAL HISTORY : Cerebrovascular disease. Cardiovascular disease Diabetes mellitus type 1. SURGICAL HISTORY : Cholecystectomy. Hysterectomy. ENCOUNTER: Initial ACUITY: 1 day PAIN SCALE: 8/10 LOCATION: Right shoulder TECHNIQUE: Volumetric scanning of the shoulder was performed. Using automated exposure control and adjustment o f the mA and/or kV according to patient size, radiation dose was kept as low as reasonably achievable to obtain optimal diagnostic quality images. DICOM format image data is available electronically f or review and comparison. FINDINGS: BONES: A comminuted fracture of the right humeral head and neck is noted. There is an angulated impacted fra cture through the surgical neck and an avulsion of the greater tuberosity. Humeral head is internally rotated but otherwise remains well seated within the glenoid fossa. Glenoid process and scapula are intact. JOINTS: Humeral head remains well-seated within the glenoid fossa. SOFT TISSUES: Articular periarticular inflammation is noted. Glenohumeral ligaments are not clearly defined. CONCLUSION: Comminuted fracture of the right humeral head and neck without dislocation. Lester Lange MD on September 10, 2017 at 18:20 Board Certified Radiologist. This report was verified electronically.
[2017-09-10 20:37] LABS: CREATINE KINASE 86 U/L (26-192)
[2017-09-11] VITALS (9 sets, daily range): BP systolic 123–153; BP diastolic 58–78; PULSE 75–94; RESP 12–18; TEMP 98.3–100.6; O2SAT 93–96
[2017-09-11] MEDS: oxyCODONE/ACETAMINOPHEN 5 MG/325 MG TAB PO PRN ×5 (01:37→23:52)
[2017-09-11] MEDS: MORPHINE SULFATE 4 MG/ML INJ IV PUSH PRN ×4 (03:58→16:46)
--- NOTE | 2017-09-11 07:42 | EKG ---
Date Performed: 09/10/2017 Time Performed: 18:07:18 PTAGE: 72 years EKG: Sinus rhythm WITH OCCASIONAL ECTOPIC PREMATURE COMPLEXES INCOMPLETE RIGHT BUNDLE BRANCH BLOCK BORDERLINE ECG Comp ared to prior electrocardiogram, Premature atrial contraction are now present PREVIOUS TRACING : 09/10/2017 12.24 DOCTOR: Ashutosh Pfeiffer Interpretating Date/Time 09/11/2017 07:41:45
[2017-09-11] MEDS: INSULIN ASPART SUPPLEMENTAL SCALE SQ SCH ×4 (08:00→21:00)
[2017-09-11] MEDS: DOCUSATE SODIUM 50 MG/SENNA 8.6 MG TAB PO SCH ×2 (08:34→23:01)
[2017-09-11] MEDS: SODIUM CHLORIDE 0.9% FLUSH 10 ML FLUSH IV FLUSH SCH ×2 (08:34→23:01)
[2017-09-11] MEDS: HEPARIN SODIUM - SQ 10,000 UNITS/ML VIAL SQ SCH ×2 (08:34→21:00)
[2017-09-11 08:35] LABS: AUTOMATED NEUTROPHIL # 6.7 TH/MM3 (1.8-7.7); BASOPHIL # 0.1 TH/MM3 (0-0.2); BASOPHIL % 0.8 % (0.0-2.0); EOSINOPHIL # 0.1 TH/MM3 (0-0.4); EOSINOPHIL % 1.4 % (0.0-4.0); HEMATOCRIT 34.8 % (35.0-46.0); HEMO FLAGS DIFF FINAL; LYMPHOCYTE # 1.7 TH/MM3 (1.0-4.8); MEAN CELL VOLUME 87.4 FL (80.0-100.0); MEAN CORPUSCULAR HEMOGLOBIN 29.5 PG (27.0-34.0); MEAN CORPUSCULAR HGB CONC 33.8 % (32.0-36.0); NEUT % 71.8 % (16.0-70.0); PLATELET COUNT 180 TH/MM3 (150-450); RED BLOOD COUNT 3.98 MIL/MM3 (4.00-5.30); RED CELL DISTRIBUTION WIDTH 13.6 % (11.6-17.2); WHITE BLOOD COUNT 9.4 TH/MM3 (4.0-11.0)
[2017-09-11] MEDS: ONDANSETRON HCL 4 MG/2 ML VIAL IVP PRN (08:44)
[2017-09-11 09:19] LABS: ALT (GPT) 31 U/L (10-53); ANION GAP 9 MEQ/L (5-15); AST (GOT) 30 U/L (15-37); BICARBONATE 27.8 MEQ/L (21.0-32.0); BLOOD UREA NITROGEN 13 MG/DL (7-18); CHLORIDE 103 MEQ/L (98-107); GLOMERULAR FILTRATION RATE 66 ML/MIN (>89); POTASSIUM 3.5 MEQ/L (3.5-5.1); SODIUM (NA) 140 MEQ/L (136-145)
[2017-09-11 09:22] LABS: ALKALINE PHOSPHATASE 73 U/L (45-117); TOTAL BILIRUBIN ADULT 0.7 MG/DL (0.2-1.0)
[2017-09-11] MEDS ORDERED: MORPHINE SULFATE 2 MG/ML INJ IV PUSH ONE (09:45)
--- NOTE | 2017-09-11 09:56 | HHI.PR ---
Subjective Remarks Follow-up for fall and shoulder and knee fractures. Daughter at bedside. Discussed with RN. Pain is still uncontrolled at this time on Percocet and IV morphine in the shoulder and knee especially worsened with any movement. Awaiting orthopedic reevaluation. No chest pain or shortness of breath. The patient states that she could probably walk 2 blocks and up a flight of stairs prior to her injury. She has some uncomfortableness in her lower back today, somewhat chronic, doesn't think she injured it and declines imaging for this currently. Objective Vitals Vital Signs Date Time Temp Pulse Resp B/P (MAP) Pulse Ox O2 Delivery O2 Flow Rate FiO2 09/11/17 08:05 94 HOME CPAP 4.00 09/11/17 07:50 98.5 94 16 123/58 (79) 94 09/11/17 04:04 17 09/11/17 03:46 98.8 75 18 136/58 (84) 96 09/11/17 03:35 96 HOME CPAP 5.00 09/10/17 23:21 99.9 79 17 127/60 (82) 91 09/10/17 19:24 99.2 87 19 153/69 (97) 94 09/10/17 15:58 98.5 79 22 141/63 (89) 92 09/10/17 12:11 98.5 84 20 166/73 (104) 94 I/O 09/10/17 09/10/17 09/10/17 09/11/17 09/11/17 09/11/17 07:00 15:00 23:00 07:00 15:00 23:00 Intake Total 720 ml 480 ml Balance 720 ml 480 ml Intake Oral 720 ml 480 ml # Voids 1 0 Result Diagram: 09/11/17 0736 09/11/17 0736 Imaging Last Impressions Upper Extremity CT 09/10/17 0000 Signed Impressions: Service Date/Time: Sunday, September 10, 2017 17:24 - CONCLUSION: Comminuted fracture of the right humeral head and neck without dislocation. Lester Lange MD Knee MRI 09/10/17 0000 Signed Impressions: Service Date/Time: Sunday, September 10, 2017 16:57 - CONCLUSION: 1. Nondisplaced fracture of the lateral tibial plateau without depression. 2. Tear in the posterior horn of the medial meniscus. 3. Small to moderate effusion. 4. Mild ACL strain at its tibial attachment. Lester Lange MD Shoulder X-Ray 09/09/172112 Signed Impressions: Service Date/Time: Saturday, September 09, 2017 21:32 - CONCLUSION: Proximal humeral fracture. Simón Ortega MD Knee X-Ray 09/09/172112 Signed Impressions: Service Date/Time: Saturday, September 09, 2017 21:43 - CONCLUSION: No acute disease. Simón Ortega MD Hip and Pelvis X-Ray 09/09/172112 Signed Impressions: Service Date/Time: Saturday, September 09, 2017 21:40 - CONCLUSION: No acute disease. Simón Ortega MD Objective Remarks GENERAL: Well-developed well-nourished obese. In no acute distress. SKIN: Warm and dry. No lesions noted. HEENT: Normocephalic. Pupils equal and round. Mucous membranes pink and moist. CARDIOVASCULAR: Regular rate and rhythm. No murmur appreciated. RESPIRATORY: No accessory muscle use. Clear to auscultation. Breath sounds equal bilaterally. GASTROINTESTINAL: Abdomen soft, non-tender, nondistended. Bowel sounds x4. MUSCULOSKELETAL: Right shoulder in a sling, moves fingers. Right knee with some swelling and maybe small joint effusion, no bruising or ecchymosis, some discomfort and decreased ROM. No edema. NEUROLOGICAL: Awake and alert. Motor and sensory grossly intact in the right upper and right lower extremities. Normal speech. PSYCHIATRIC: Appropriate mood and affect; insight and judgment normal. A/P Problem List: (1) Fall ICD Code: W19.XXXA - Unspecified fall, initial encounter Status: Acute (2) Proximal humerus fracture ICD Code: S42.209A - Unspecified fracture of upper end of unspecified humerus, initial encounter for closed fracture Status: Acute (3) Knee pain, right ICD Code: M25.561 - Pain in right knee Status: Acute (4) HTN (hypertension) ICD Code: I10 - Essential (primary) hypertension Status: Chronic (5) DM (diabetes mellitus) ICD Code: E11.9 - Type 2 diabetes mellitus without complications Status: Chronic Assessment and Plan 72-year-old female with a PMH of HTN and DM who presented after a fall with right shoulder and right knee pain Right proximal humerus fracture s/p fall: Shoulder X-ray and CT with comminuted angulated humeral head fracture. Orthopedics consulted, appreciate input. Continue sling. Continue pain control. Acute right knee nondisplaced fracture of the lateral tibial plateau, tear in the posterior horn of the medial meniscus, joint effusion, ACL sprain: Seen on the MRI. Knee, hip, pelvis X-rays didn't show any acute findings. Pt unable to bear weight or ambulate. PT/OT consulted, likely needs SNF. Intractable pain: Requiring multiple doses of IV pain medication with minimal relief. Continue Percocet as needed. Increase IV morphine dose. HTN: Chronic with transient hypotension w/ BP 94/55, HR 72 while standing in the ED. BP stable while laying, will continue monitor orthostatic vitals when ambulatory. IVF for hydration, monitor BP. Resume home amlodipine and lisinopril. DM: Hold home Actos at this time. Sliding scale w/ Accu-Cheks. Chest pain and shortness of breath: Secondary to knee pain when trying to ambulate as above. Denies any prior symptoms with activity or symptoms currently. EKG with NSR, RBBB, no ischemic changes noted. Troponin negative 3. TRUDY: Continue home CPAP. DVT Prophylaxis: Heparin sq Discharge Planning Follow-up orthopedics recommendations. Problem Qualifiers (1) Fall: Qualified Codes: W19.XXXA - Unspecified fall, initial encounter (2) Proximal humerus fracture: Qualified Codes: S42.291A - Other displaced fracture of upper end of right humerus, initial encounter for closed fracture (3) Knee pain, right: Qualified Codes: M25.561 - Pain in right knee (4) HTN (hypertension): Qualified Codes: I10 - Essential (primary) hypertension Alexys Palmer Sep 11, 2017 09:56
[2017-09-11] MEDS: LISINOPRIL 20 MG TAB PO SCH (10:00)
[2017-09-11] MEDS: amLODIPine BESYLATE 5 MG TAB PO SCH (10:00)
[2017-09-11] MEDS: PANTOPRAZOLE SOD 20 MG DELAYED RELEASE TAB PO SCH ×2 (10:00→23:00)
[2017-09-11] MEDS ORDERED: ceFAZolin 2 GM PREMIX 50 ML IV SCH (13:00)
--- NOTE | 2017-09-11 18:05 | OTSOAPIP ---
TIME SESSION COMPLETED: 1430 TREATMENT TIME: 0 MINS. CHART REVIEWED. ATTEMPTED TO SEE FOR OT EVALUATION, HOWEVER PT AND DAUGHTER DECLINED DAUGHTER REPORTS SHE IS TRYING TO GET PATIENT TRANSFERRED TO HOSPITAL IN [place] TODAY. Therapist: ANITA KEITA OT/L Signature on file
--- NOTE | 2017-09-11 21:55 | RADRPT ---
EXAM DATE/TIME: 09/11/2017 21:27 [facility] COMPARISON: No previous studies available for comparison. INDICATIONS : Shortness of breath, cough. MEDICAL HISTORY : None. SURGICAL HISTORY : None. ENCOUNTER: Subsequent ACUITY: 3 days PAIN SCORE: 0/10 LOCATION: Bilateral chest FINDINGS: A single view of the chest demonstrates the lungs to be symmetrically aerated without evidence of mas s, infiltrate or effusion. The cardiomediastinal contours are unremarkable. Comminuted fracture of t he proximal right humerus and humeral head is noted. CONCLUSION: 1. No evidence of acute cardiopulmonary process 2. Fracture right humeral head Lester Lange MD on September 11, 2017 at 21:53 Board Certified Radiologist. This report was verified electronically.
[2017-09-11] MEDS ORDERED: LEVOFLOXACIN 750 MG PREMIX INJ 150 ML IV SCH (22:00)
[2017-09-12 00:04] LABS: BLOOD, URINE TRACE (NEG); COMMENT (UR) CULTURE INDICATED; CULTURE IF INDICATED CULTURE INDICATED; GLUCOSE,URINE NEG (NEG); KETONE, URINE 10 mg/dL (NEG); MUCUS URINE FEW /lpf (OCC); NITRITE,URINE NEG (NEG); SQUAMOUS EPITHELIAL CELL URINE 1 /hpf (0-5); TRANSITIONAL EPI CELLS, URINE <1 /hpf; URINE COLOR YELLOW (YELLW/STRAW)
[2017-09-12] MEDS: ONDANSETRON HCL 4 MG/2 ML VIAL IVP PRN ×2 (00:05→06:28)
[2017-09-12 00:06] VITALS: BP 109/60; PULSE 90; RESP 17; TEMP 99.6; O2SAT 97
[2017-09-12] MEDS: oxyCODONE/ACETAMINOPHEN 5 MG/325 MG TAB PO PRN ×3 (03:57→12:11)
[2017-09-12 04:07] VITALS: BP 102/63; PULSE 90; RESP 17; TEMP 99.8; O2SAT 96
[2017-09-12] MEDS: MORPHINE SULFATE 4 MG/ML INJ IV PUSH PRN ×2 (06:27→10:36)
[2017-09-12 08:00] VITALS: BP 109/60; PULSE 78; RESP 16; TEMP 98.7; O2SAT 95
[2017-09-12] MEDS: D5-1/2 NS + KCL 20 MEQ INJ 1,000 ML IV SCH ×2 (08:23)
[2017-09-12] MEDS: INSULIN ASPART SUPPLEMENTAL SCALE SQ SCH (08:31)
[2017-09-12] MEDS: amLODIPine BESYLATE 5 MG TAB PO SCH (08:43)
[2017-09-12] MEDS: DOCUSATE SODIUM 50 MG/SENNA 8.6 MG TAB PO SCH (08:43)
[2017-09-12] MEDS: LISINOPRIL 20 MG TAB PO SCH (08:44)
[2017-09-12] MEDS: SODIUM CHLORIDE 0.9% FLUSH 10 ML FLUSH IV FLUSH SCH (08:44)
[2017-09-12] MEDS: PANTOPRAZOLE SOD 20 MG DELAYED RELEASE TAB PO SCH (08:44)
[2017-09-12] MEDS: HEPARIN SODIUM - SQ 10,000 UNITS/ML VIAL SQ SCH (08:44)
[2017-09-12] MEDS ORDERED: ATORVASTATIN 10 MG TAB PO SCH (09:00)
[2017-09-12 09:32] VITALS: RESP 16
--- NOTE | 2017-09-12 12:10 | HHI.PR ---
Subjective Remarks As she is feeling all right, with the exception of pain which continues. Denies any chest pain or shortness of breath. Denies any cough. She denies any dysuria, however does report urge incontinence for the past few months. She did experience fevers 100.61 overnight on however this normalize on remeasurement. Objective Vital Signs Date Time Temp Pulse Resp B/P (MAP) Pulse Ox O2 Delivery O2 Flow Rate FiO2 09/12/17 09:32 16 09/12/17 08:00 98.7 78 16 109/60 (76) 95 09/12/17 04:07 99.8 90 17 102/63 (76) 96 09/12/17 00:06 99.6 90 17 109/60 (76) 97 09/11/17 20:05 100.6 80 17 153/78 (103) 96 09/11/17 17:54 96 21 09/11/17 17:00 99.5 78 12 127/67 (87) 93 09/11/17 13:30 98.7 91 12 145/63 (90) 96 I/O 09/11/17 09/11/17 09/11/17 09/12/17 09/12/17 09/12/17 07:00 15:00 23:00 07:00 15:00 23:00 Intake Total 480 ml 300 ml 0 ml Balance 480 ml 300 ml 0 ml Intake Oral 480 ml 300 ml 0 ml # Voids 0 1 1 # Bowel Movements 0 0 Result Diagram: 09/11/17 0736 09/11/17 0736 Imaging Last Impressions Chest X-Ray 09/11/17 0000 Signed Impressions: Service Date/Time: Monday, September 11, 2017 21:27 - CONCLUSION: 1. No evidence of acute cardiopulmonary process 2. Fracture right humeral head Lester Lange MD Upper Extremity CT 09/10/17 0000 Signed Impressions: Service Date/Time: Sunday, September 10, 2017 17:24 - CONCLUSION: Comminuted fracture of the right humeral head and neck without dislocation. Lester Lange MD Knee MRI 09/10/17 0000 Signed Impressions: Service Date/Time: Sunday, September 10, 2017 16:57 - CONCLUSION: 1. Nondisplaced fracture of the lateral tibial plateau without depression. 2. Tear in the posterior horn of the medial meniscus. 3. Small to moderate effusion. 4. Mild ACL strain at its tibial attachment. Lester Lange MD Shoulder X-Ray 09/09/172112 Signed Impressions: Service Date/Time: Saturday, September 09, 2017 21:32 - CONCLUSION: Proximal humeral fracture. Simón Ortega MD Knee X-Ray 09/09/172112 Signed Impressions: Service Date/Time: Saturday, September 09, 2017 21:43 - CONCLUSION: No acute disease. Simón Ortega MD Hip and Pelvis X-Ray 09/09/172112 Signed Impressions: Service Date/Time: Saturday, September 09, 2017 21:40 - CONCLUSION: No acute disease. Simón Ortega MD Objective Remarks GENERAL: Patient lying in bed. Appears comfortable. SKIN: Warm and dry. HEAD: Normocephalic. EYES: No scleral icterus. No injection or drainage. NECK: Supple, trachea midline. No JVD. CARDIOVASCULAR: Regular rate and rhythm without murmurs, gallops, or rubs. RESPIRATORY: Breath sounds equal bilaterally. No accessory muscle use. GASTROINTESTINAL: Abdomen soft, non-tender, nondistended. MUSCULOSKELETAL: No cyanosis, or edema. Right arm in sling. Peripheral perfusion intact bl upper and lower extremities. BACK: Nontender without obvious deformity. No CVA tenderness. A/P Assessment and Plan 72-year-old female with a PMH of HTN and DM who presented after a fall with right shoulder and right knee pain //Right proximal humerus fracture s/p fall: Shoulder X-ray and CT with comminuted angulated humeral head fracture. Orthopedics consulted, appreciate input. Continue sling. Continue pain control. = Patient be transferred to outside hospital as per orthopedics. //Acute right knee nondisplaced fracture of the lateral tibial plateau, tear in the posterior horn of the medial meniscus, joint effusion, ACL sprain: Seen on the MRI. Knee, hip, pelvis X-rays didn't show any acute findings. Pt unable to bear weight or ambulate. PT/OT consulted, likely needs SNF. = Patient be transferred to outside hospital as per orthopedics. //Intractable pain: Requiring multiple doses of IV pain medication with minimal relief. Continue Percocet as needed. Increase IV morphine dose. = Pain control. Continue medications as ordered. //HTN: Chronic with transient hypotension w/ BP 94/55, HR 72 while standing in the ED. BP stable while laying, will continue monitor orthostatic vitals when ambulatory. IVF for hydration, monitor BP. Resume home amlodipine and lisinopril. = blood pressure reviewed and acceptable. Continue home blood pressure medications. //Possible UTI. She did experience fevers 100.61 overnight on however this normalize on remeasurement. Chest x-ray with no acute findings apart from right humeral head fracture. Urinalysis with 64 white blood cells, possible UTI. She is been started on Levaquin, which will continue. She did have leukocytosis on admission 14.3, however this normalized yesterday to 9.4. Urine culture pending. //DM: Hold home Actos at this time. Sliding scale w/ Accu-Cheks. //Chest pain and shortness of breath: Secondary to knee pain when trying to ambulate as above. Denies any prior symptoms with activity or symptoms currently. EKG with NSR, RBBB, no ischemic changes noted. Troponin negative 3. //TRUDY: Continue home CPAP. DVT Prophylaxis: Heparin sq Discharge Planning Transferred outside hospital as per orthopedics. Daniel Moran MD Sep 12, 2017 12:10
--- NOTE | 2017-09-12 12:15 | HHI.DS ---
Discharge Summary Admission Date Sep 11, 2017 at 09:42 Discharge Date: Sep 12, 2017 Admitting Diagnosis right proximal humerus fracture, right knee pain (1) Fall ICD Code: W19.XXXA - Unspecified fall, initial encounter Status: Acute (2) Proximal humerus fracture ICD Code: S42.209A - Unspecified fracture of upper end of unspecified humerus, initial encounter for closed fracture Status: Acute (3) Knee pain, right ICD Code: M25.561 - Pain in right knee Status: Acute (4) HTN (hypertension) ICD Code: I10 - Essential (primary) hypertension Status: Chronic (5) DM (diabetes mellitus) ICD Code: E11.9 - Type 2 diabetes mellitus without complications Status: Chronic Procedures No invasive procedures performed. Brief History - From Admission This is a 72-year-old female with a PMH of HTN and DM who is brought to the ER by Daughter secondary to complaints of right shoulder and right knee pain after a fall. Both patient and daughter are visiting from [facility], [facility] she had mechanical trip and fall while at Hotel. Denies dizziness/ lightheadedness, LOC or head trauma. On arrival, BP 120/62, HR 73, O2 sat 99% on RA, Afebrile. WBC 14.3. Chemistry pending. Hip X-ray negative. Knee X- ray with no acute findings. Shoulder X-ray with proximal humerus fracture, s/p sling in ER. Pt was to be d/c'd home w/ outpatient Ortho follow-up, however c/ o severe, persistent shoulder/knee pain. Pt attempted to ambulate while in ER, however had severe pain unable to ambulate. Daughter not comfortable taking patient home in this condition. CBC/BMP: 09/11/17 0736 09/11/17 0736 Significant Findings Laboratory Tests Test 09/10/17 03:45 09/10/17 13:17 09/10/17 19:45 09/11/17 07:36 White Blood Count 14.3 TH/MM3 (4.0-11.0) Neutrophils (%) (Auto) 86.5 % (16.0-70.0) 71.8 % (16.0-70.0) Lymphocytes (%) (Auto) 8.0 % (9.0-44.0) Neutrophils # (Auto) 12.4 TH/MM3 (1.8-7.7) Random Glucose 138 MG/DL (74-106) 118 MG/DL (74-106) Estimat Glomerular Filtration Rate 59 ML/MIN (>89) 66 ML/MIN (>89) Troponin I LESS THAN 0.02 NG/ML LESS THAN 0.02 NG/ML LESS THAN 0.02 NG/ML Red Blood Count 3.98 MIL/MM3 (4.00-5.30) Hematocrit 34.8 % (35.0-46.0) Albumin 3.0 GM/DL (3.4-5.0) Test 09/11/17 23:25 Urine Turbidity HAZY (CLEAR) Urine Ketones 10 mg/dL (NEG) Urine Occult Blood TRACE (NEG) Urine Leukocyte Esterase LARGE (NEG) Urine WBC 64 /hpf (0-5) Urine Mucus FEW /lpf (OCC) Imaging Last Impressions Chest X-Ray 09/11/17 Signed Impressions: Service Date/Time: Monday, September 11, 2017 21:27 - CONCLUSION: 1. No evidence of acute cardiopulmonary process 2. Fracture right humeral head Lester Lange MD Upper Extremity CT 09/10/17 Signed Impressions: Service Date/Time: Sunday, September 10, 2017 17:24 - CONCLUSION: Comminuted fracture of the right humeral head and neck without dislocation. Lester Lange MD Knee MRI 09/10/17 Signed Impressions: Service Date/Time: Sunday, September 10, 2017 16:57 - CONCLUSION: 1. Nondisplaced fracture of the lateral tibial plateau without depression. 2. Tear in the posterior horn of the medial meniscus. 3. Small to moderate effusion. 4. Mild ACL strain at its tibial attachment. Lester Lange MD Shoulder X-Ray 09/09/172112 Signed Impressions: Service Date/Time: Saturday, September 09, 2017 21:32 - CONCLUSION: Proximal humeral fracture. Simón Ortega MD Knee X-Ray 09/09/172112 Signed Impressions: Service Date/Time: Saturday, September 09, 2017 21:43 - CONCLUSION: No acute disease. Simón Ortega MD Hip and Pelvis X-Ray 09/09/172112 Signed Impressions: Service Date/Time: Saturday, September 09, 2017 21:40 - CONCLUSION: No acute disease. Simón Ortega MD Hospital Course Patient was admitted and treated with narcotics for pain of right humeral head fracture, right knee nondisplaced tibial plateau fracture as seen on above imaging. Orthopedics was consulted, and recommends surgical treatment. Patient wishes to be transferred outside hospital. Incidentally, patient did have a elevated temperature 100.6x1 on 09/11 overnight. Chest x-ray without any respiratory findings, however urinalysis did show large leukocyte esterase, 64 white blood cells. Fever is most likely secondary to pain/inflammation from recent fracture, however patient was started on Levaquin for treatment of UTI. Urine culture pending at this time. For problem-based summary from most recent progress note, please see below. 72-year-old female with a PMH of HTN and DM who presented after a fall with right shoulder and right knee pain //Right proximal humerus fracture s/p fall: Shoulder X-ray and CT with comminuted angulated humeral head fracture. Orthopedics consulted, appreciate input. Continue sling. Continue pain control. = Patient be transferred to outside hospital as per orthopedics. //Acute right knee nondisplaced fracture of the lateral tibial plateau, tear in the posterior horn of the medial meniscus, joint effusion, ACL sprain: Seen on the MRI. Knee, hip, pelvis X-rays didn't show any acute findings. Pt unable to bear weight or ambulate. PT/OT consulted, likely needs SNF. = Patient be transferred to outside hospital as per orthopedics. //Intractable pain: Requiring multiple doses of IV pain medication with minimal relief. Continue Percocet as needed. Increase IV morphine dose. = Pain control. Continue medications as ordered. //HTN: Chronic with transient hypotension w/ BP 94/55, HR 72 while standing in the ED. BP stable while laying, will continue monitor orthostatic vitals when ambulatory. IVF for hydration, monitor BP. Resume home amlodipine and lisinopril. = blood pressure reviewed and acceptable. Continue home blood pressure medications. //Possible UTI. She did experience fevers 100.61 overnight on however this normalize on remeasurement. Chest x-ray with no acute findings apart from right humeral head fracture. Urinalysis with 64 white blood cells, possible UTI. She is been started on Levaquin, which will continue. She did have leukocytosis on admission 14.3, however this normalized yesterday to 9.4. Urine culture pending. //DM: Hold home Actos at this time. Sliding scale w/ Accu-Cheks. //Chest pain and shortness of breath: Secondary to knee pain when trying to ambulate as above. Denies any prior symptoms with activity or symptoms currently. EKG with NSR, RBBB, no ischemic changes noted. Troponin negative 3. //TRUDY: Continue home CPAP. DVT Prophylaxis: Heparin sq Pt Condition on Discharge: Good Discharge Disposition: Trnsfr to Other Facility Discharge Time: > 30 minutes Discharge Instructions DIET: Follow Instructions for: Diabetic Diet Activities you can perform: Non Weight Bearing Additional Information Current Medications Medications (Trade) Dose Ordered Sig/Juanita Route Start Time Stop Time Status Last Admin (NS Flush) 2 ml UNSCH PRN IV FLUSH 09/10/17 03:30 09/11/17 16:46 (NS Flush) 2 ml BID IV FLUSH 09/10/17 09:00 09/11/17 23:01 (Zofran Inj) 4 mg Q6H PRN IVP 09/10/17 03:30 09/12/17 06:28 (Tylenol) 650 mg Q6H PRN PO 09/10/17 03:30 (Vicky-Colace) 1 tab BID PO 09/10/17 09:00 09/11/17 23:01 (Milk Of Magnesia Liq) 30 ml Q12H PRN PO 09/10/17 03:30 (Senokot) 17.2 mg Q12H PRN PO 09/10/17 03:30 (Dulcolax Supp) 10 mg DAILY PRN RECTAL 09/10/17 03:30 (Lactulose Liq) 30 ml DAILY PRN PO 09/10/17 03:30 (D50w (Vial) Inj) 50 ml UNSCH PRN IV PUSH 09/10/17 03:30 (Glucagon Inj) 1 mg UNSCH PRN OTHER 09/10/17 03:30 (NovoLOG SUPPLEMENTAL SCALE) 1 ACHS SLIDING SCALE SQ 09/10/17 08:00 09/10/17 20:27 (Heparin Inj) 5,000 units Q12HR SQ 09/10/17 09:00 09/10/17 20:27 (Percocet 5-325 Mg) 1 tab Q4H PRN PO 09/10/17 07:30 09/12/17 08:32 (Norvasc) 5 mg DAILY PO 09/11/17 10:00 09/11/17 10:00 (Prinivil) 20 mg DAILY PO 09/11/17 10:00 09/11/17 10:00 (Protonix) 20 mg BID PO 09/11/17 10:00 09/11/17 23:00 (Lipitor) 10 mg DAILY PO 09/12/17 09:00 (Morphine Inj) 3 mg Q3H PRN IV PUSH 09/11/17 12:30 09/12/17 10:36 Cefazolin Sodium/ Dextrose 50 ml @ 150 mls/hr DEP[employer]OR IV 09/11/17 13:00 09/15/17 12:59 Potassium Chloride/Dextrose/ Sod Cl 1,000 ml @ 75 mls/hr [id number] IV 09/11/17 19:03 09/12/17 00:00 Levofloxacin/ Dextrose 150 ml @ 100 mls/hr Q24H IV 09/11/17 22:00 09/11/17 22:13 Daniel Moran MD Sep 12, 2017 12:15
== END 2017-09-12 12:47 | disposition short-term general hospital (02) | DRG 563 ==
LOC: NEPC 21:02 → NEDA 09-10 03:37 → NEPFCDU 09-10 05:09 → OBSVTOIN 09-11 09:42 → N06B 09-11 12:09
PROVIDERS: ADMIT Internal Medicine; ATTEND Internal Medicine
DX: S42.201A Unspecified fracture of upper end of right humerus, initial encounter for closed fracture (principal); E11.9 Type 2 diabetes mellitus without complications; I45.10 Unspecified right bundle-branch block; I10 Essential (primary) hypertension; W01.0XXA Fall on same level from slipping, tripping and stumbling without subsequent striking against object, initial encounter; Y92.59 Other trade areas as the place of occurrence of the external cause; G47.33 Obstructive sleep apnea (adult) (pediatric); S83.511A Sprain of anterior cruciate ligament of right knee, initial encounter
CPT/HCPCS: 71010; 73030; 73200; 73502; 73564; 73721; 80048; 80053; 81001; 82550; 82948; 84484; 85025; 87086; 93005; 96372; 96374; 96375; 96376; G0378; G8987-GP; G8988-GP; J1644; J1815; J1956; J2270; J2405; J3480